=== PATIENT | female | born 2005 | race Caucasian/White ===

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

== ENCOUNTER 2023-01-25 18:23 | Emergency (ER) | payer BC, MEDICAID, SELFPAY ==
[2023-01-25 18:24] VITALS: BP 153/101; PULSE 125; RESP 18; TEMP 36.4; O2SAT 95; BMI 33.5
== END 2023-01-25 18:30 | disposition left against medical advice (07) ==
LOC: ED 18:54
PROVIDERS: PCP Pediatrics
DX: Z53.21 Procedure and treatment not carried out due to patient leaving prior to being seen by health care provider (principal)

== ENCOUNTER 2023-01-26 11:42 | Emergency (ER) | payer BC, MEDICAID, SELFPAY ==
[2023-01-26 11:43] VITALS: BP 147/119; PULSE 120; RESP 18; TEMP 36.1; O2SAT 98; BMI 33.4
[2023-01-26 11:51] VITALS: O2SAT 97
[2023-01-26 11:53] VITALS: PULSE 105; O2SAT 98
--- NOTE | 2023-01-26 13:00 | EKG12_ITS ---
Test Reason : Blood Pressure : / mmHG Vent. Rate : 087 BPM Atrial Rate : 087 BPM P-R Int : 136 ms QRS Dur : 088 ms QT Int : 374 ms P-R-T Axes : 031 090 061 degrees QTc Int : 450 ms Normal sinus rhythm with sinus arrhythmia Rightward axis Borderline ECG Confirmed by OPAL TALAMANTES, TRAY ([id number]), photograph editor TOÑO HERNANDEZ ([id number]) on 01/28/2023 8:51:58 AM Referred By: Confirmed By:ARDEN JOSEPH MD
--- NOTE | 2023-01-26 13:01 | US_ITS ---
STUDY: ABDOMINAL ULTRASOUND - RIGHT UPPER QUADRANT REASON FOR VISIT: Female, 17 years old. ABDOMEN PAIN PAIN TECHNIQUE: Ultrasound evaluation of the right upper quadrant was performed with real-time and static garsia-scale imaging. TECHNICAL QUALITY: Adequate. COMPARISON: None FINDINGS: Liver: There is normal echogenicity of the liver. The bile ducts are within normal limits. There is hepatic color flow. The direction of portal flow is hepatopetal. There is no demonstrated mass lesion. Gallbladder: Normal distended gallbladder. The gallbladder wall measures 1.7 mm. There is a negative sonographic Moya''s sign. There is no pericholecystic fluid. There are no gallstones. Common Bile Duct (C.B.D.): The common bile duct measures ( in mm): 3.2 Pancreas: Normal size of the head, body of the pancreas. There is normal echogenicity of the pancreas. There is no demonstrated pancreatic mass or cyst. Right Kidney: Normal size of the right kidney. The right kidney measures 9.7 cm. . Normal renal cortex. There is no demonstrated renal mass or cyst. There is no right hydronephrosis. Aorta: It is not visualized. There is too much overlying bowel gas. . US/Gallbladder IMPRESSION: No acute findings. Electronically Signed: Mikhail Valle MD at 14:31 EDT ,
[2023-01-26] MEDS: 0.9% Normal Saline 1,000 ML 1000 ML IV (13:19)
[2023-01-26] MEDS: Mag Hydrox/Al Hydrox/Simeth 30 ML UDC PO (13:25)
[2023-01-26 13:29] LABS: Mucous, Urine 0 SEEN /hpf (<or=2+); Red Blood Cells-Urine 0 SEEN /hpf (0-5)
[2023-01-26 13:33] LABS: Absolute Lymphocyte Count 2.02 X10^3/uL (0.83-4.51); Absolute Neutrophil Count 8.5 X10^3/uL (2.0-7.7); Basophil# 0.05 X10^3/uL; Basophil% 0.4 % (0-1); Eosinophil# 0.08 X10^3/uL; Eosinophils% 0.7 % (0-5); Hemoglobin 14.1 g/dL (12.0-15.0); Lymphocyte # 2.02 X10^3/ul (0.83-4.51); Lymphocyte % 17.9 % (19-41); Mean Corpuscular Hgb 27.3 pg (27.0-32.0); Mean Corpuscular Volume 85.3 fL (81-99); Mean Platelet Vol. 10.5 fl (6.2-12.0); Monocyte# 0.57 X10^3/uL; NRBC Flagged by Analyzer 0 % (0-5); Neutrophil # 8.54 X10^3/uL (2.7-7.7); Neutrophil % 75.6 % (47-70); Platelet Count 388 K/mm3 (150-450); RBC Distribution Width SD 40.6 fl (35.1-43.9); Red Blood Count 5.16 M/mm3 (4.2-5.4); White Blood Count 11.3 K/mm3 (4.4-11.0)
[2023-01-26 13:39] LABS: Color, Urine Yellow (Yellow); Glucose, Dipstick Normal (Normal); Ketone-Dipstick Negative (Negative); Leukocyte Esterase-Dipstick 100 /ul (Negative); Nitrite-Dipstick Negative (Negative); Occult Blood-Urine Negative /ul (Negative); Protein-Dipstick 15 mg/dl (Negative); Specific Gravity, Urine 1.015 (1.002-1.030); Urine Bilirubin Dipstick Negative (Negative); Urine Clarity Cloudy (Clear); Urine Urobilinogen Normal (Normal)
[2023-01-26 13:49] LABS: D-Dimer Quantitative (DVT/PE) 0.35 FEU/ug/m (0.27-0.49)
[2023-01-26 13:51] LABS: ALB/GLOB Ratio 0.8 RATIO (0.9-2.4); AST(SGOT) 13 U/L (15-37); Alanine Aminotransfer ALT/SGPT 31 U/L (13-56); Albumin, Serum 3.8 g/dL (3.2-5.0); Alkaline Phosphatase 77 U/L (45-117); Anion Gap 5 (5-15); BUN 7 mg/dL (7-18); BUN/Creat Ratio 8.1 RATIO (10-20); Calcium,Total 9.2 mg/dL (8.5-10.1); Chloride 108 mmol/L (98-107); Creatinine, Serum 0.86 mg/dL (0.55-1.02); EST Glomerular Filtration Rate 90 mL/min (>60); Est Glom Filt Rate - Afr Amer 109 mL/min (>60); Estimated Creatinine Clearance 94.68 ml/min; Globulin 4.7 g/dL (2.2-4.2); Glucose 93 mg/dL (74-106); Lipase 20 U/L (13-75); Potassium 3.8 mmol/L (3.5-5.1); Protein, Total 8.5 g/dL (6.4-8.2); Sodium Level 138 mmol/L (136-145); Troponin-I HS < 3 pg/mL (3.0-54.0)
[2023-01-26 13:52] LABS: Bacteria 2+ /hpf (None Seen); Internal QC Validated? YES +Cl - CLEAR BKGD; Pregnancy, Urine Negative Negative; Squamous Epithelial Cells - UA 5-10 SEEN /hpf (5-10); White Blood Cells 5-10 SEEN /hpf (0-5)
[2023-01-26 13:56] LABS: Lactic Acid 1.2 mmol/L (0.4-1.9)
--- NOTE | 2023-01-26 15:12 | RAD_ITS ---
EXAM: XR CHEST, 2 VIEWS CLINICAL INDICATION: dyspnea TECHNIQUE: Frontal and lateral views of the chest. COMPARISON: 7.5.23 FINDINGS: LUNGS AND PLEURAL SPACES: Unremarkable. No consolidation or edema. No pneumothorax. No effusion. HEART: Unremarkable. Cardiac silhouette not enlarged. MEDIASTINUM: Central airways and mediastinal contour are unremarkable. BONES/JOINTS: Unremarkable. SOFT TISSUES: Unremarkable. RAD/Chest PA and Lateral IMPRESSION: No radiographic evidence of acute cardiopulmonary disease. Electronically Signed: Mikhail Valle MD at 15:35 EDT ,
--- NOTE | 2023-01-26 15:25 | EDS_ITS ---
HPI History of Present Illness Chief Complaint: Shortness of Breath Informant: patient Narrative Narrative: Patient is a 17-year-old female presenting with ongoing chest discomfort, sensation of shortness of breath and reflux. Patient states her symptoms started the end of November. She initially went to urgent care she is complained of nausea, vomiting and a sensation of feeling like she could not take a deep breath for couple days. She was clinically diagnosed with aspiration pneumonia and placed on amoxicillin as well as prescribe Zofran. Patient states about a week later she came to the ER because she was having worsening of her symptoms. She feels that the antibiotics irritated everything. She was feeling more short of breath. She had work-up included chest x-ray and labs which was largely negative and was discharged home. She returned to the ER the following day with progression of her symptoms. She was given a GI cocktail and had improvement of her symptoms. She has had outpatient follow-up ordered for tachycardia. She is been referred to GI. She states that she called GI but was told that they are not excepting new patients so she did not make an appointment. She was prescribed omeprazole which she has been taking daily. She states she has about 3 pills left. Patient states that she is continue to have symptoms. She states that she will feel like she cannot take a deep enough breath or catch her breath. She has intermittent short-lived pain in her chest that is in all different spots including her back. She notes that if she vomits her symptoms are much worse. She did have black in her stool. She does of well she is marijuana. She denies any alcohol use. She denies any blood in her vomit. She is her symptoms are better when she lays down flat. She states she always has a sensation of tightness in her throat. She is also having some mild lower abdominal cramping pain. Last menstrual period was 1 month ago and she is due to start today. She does not think she is . She has been having some abdominal bloating and increased gurgling sound in her abdomen. Denies any new cough. Denies any significant change in her symptoms. Requested a GI cocktail. [facility] Medical History COVID-19 Home Medications ondansetron HCl 8 mg tablet 8 mg PO Q8H PRN nausea and vomiting #10 tabs 12/25/22 [Rx Last Taken Unknown] omeprazole 20 mg capsule,delayed release 20 mg PO DAILY #30 CAPSULES 12/31/22 [Rx Last Taken Unknown] omeprazole 40 mg capsule,delayed release 40 mg PO DAILY #30 caps 01/26/23 [Rx Last Taken Unknown] sucralfate 1 gram tablet (Carafate) 1 g PO TID #30 tabs 01/26/23 [Rx Last Taken Unknown] Allergy/AdvReac Type Severity Reaction Status Date / Time No Known Allergies Allergy Verified 01/26/23 11:45 Social History Smoking Status: Current every day smoker tobacco type: e-cigarettes ROS ROS ED Constitutional Constitutional ED: Denies chills or fever(s) ENT ENT ED: Reports sore throat Cardiovascular Cardiovascular: Reports chest pain; Denies palpitations or racing heartbeat Respiratory/Chest Respiratory/Chest: Reports cough and dyspnea; Denies dyspnea on exertion Gastrointestinal Gastrointestinal: Reports abdominal pain, melena, nausea and vomiting; Denies diarrhea Musculoskeletal Musculoskeletal: Denies arthralgias or myalgias Integumentary Denies rash Neurologic Neurologic: Denies headache(s) or weakness Psychiatric Psychiatric: Denies anxiety Hematologic/Lymphatic Hematologic/Lymphatic: Denies easy bleeding or easy bruising EXAM Physical Exam Const Vital Signs: 01/26/23 11:43 01/26/23 11:51 01/26/23 11:53 Temperature 96.9 F L Temperature Source Temporal Pulse Rate 120 H 105 H Respiratory Rate 18 Respiratory Effort Non-Labored Short of Breath Respiratory Depth Normal Respiratory Pattern Normal Blood Pressure 147/119 H Blood Pressure Mean 128 Pulse Ox 98 98 Oxygen Delivery Method Room Air Room Air Room Air Positive well nourished and well developed General Appearance ED: well developed and NAD HEENT Reports moist mucous membranes Eyes PERRL and EOMs intact bilaterally General Eye ED: Negative for pale conjunctiva Neck supple and no JVD Chest Wall inspection of chest normal and palpation of chest normal Chest Narrative: no chest wall crepitus Resp normal respiratory effort and clear to auscultation bilaterally Cardio regular rate, regular rhythm and no murmurs GI normal to inspection, nondistended, normoactive bowel sounds and non-distended GI Narrative: Epigastric and right upper quadrant, negative Moya sign Palpation: soft Back/Spine no CVA tenderness Extremity normal to inspection Neuro oriented x3 Sensorium / Orientation: alert Motor Exam: Negative for general weakness Psych mental status grossly normal Mood & Affect: Negative for depressed or anxious Skin no rashes or lesions noted and no wounds MDM MDM MDM Narrative Medical decision making narrative: Patient is evaluated for continued chest discomfort as well as epigastric disc omfort and shortness of breath. Her symptoms really seem more GI in nature. She is given a GI cocktail and completely resolved. She is tachycardic upon arrival and chart review shows that she has never had a PE evaluation with a D- dimer. This is obtained she is otherwise low risk however her D-dimer is normal and she does not require a CTA. Otherwise have a low suspicion for pulmonary emboli. She is a mild cytosis 11.3 which is nonspecific. Troponin is less than 3 and her EKG is normal/nonischemic. I do not think this is cardiopulmonary process. Two-view chest x-ray viewed by myself as well as radiology is negative for acute infiltrate, pneumothorax, cardiomegaly or signs of mediastinitis/Boerhaave syndrome. On exam patient did have tenderness to palpation as well in her right upper quadrant and ultrasound of the gallbladder is obtained. This is negative for any acute process. Discussed with GI and will arrange for outpatient follow-up. Patient is comfortable with this. Patient's lactate is normal. She reported dark stools however she has a normal hemoglobin of 14.1 and she is a normal BUN which is not consistent with an upper GI bleed. Will increase the patient's PPI and also started on Carafate. Patient also discussed that she can use an [id number] form of a GI cocktail with Maalox and simethicone for breakthrough symptoms. Urinalysis is consistent with contamination. Patient discharged home in stable and improved condition. Lab Data Attestation: I reviewed the patient's lab results. Labs: Laboratory Results - last 24 hr 01/26/23 13:26 WBC 11.3 H RBC 5.16 Hgb 14.1 Hct 44.0 MCV 85.3 MCH 27.3 MCHC 32.0 RDW Std Deviation 40.6 RDW Coeff of Makenna 13.0 Plt Count 388 MPV 10.5 Immature Gran % (Auto) 0.400 Neut % (Auto) 75.6 H Lymph % (Auto) 17.9 L [place] % (Auto) 5.0 Eos % (Auto) 0.7 Baso % (Auto) 0.4 Absolute Neuts (auto) 8.5 H Absolute Lymphs (auto) 2.02 Nucleated RBC % 0 D-Dimer Quant (PE/DVT) 0.35 Sodium 138 Potassium 3.8 Chloride 108 H Carbon Dioxide 25.0 Anion Gap 5 BUN 7 Creatinine 0.86 Estim Creat Clear Calc 94.68 Est GFR (MDRD) Af Amer 109 Est GFR (MDRD) Non-Af 90 BUN/Creatinine Ratio 8.1 L Glucose 93 Lactic Acid 1.2 Calcium 9.2 Total Bilirubin 0.30 AST 13 L ALT 31 Alkaline Phosphatase 77 Troponin I High Sens < 3 L Total Protein 8.5 H Albumin 3.8 Globulin 4.7 H Albumin/Globulin Ratio 0.8 L Lipase 20 Urine Color Yellow Urine Clarity Cloudy Urine pH 8.0 Ur Specific [place] 1.015 Urine Protein 15 H Urine Glucose (UA) Normal Urine Ketones Negative Urine Occult Blood Negative Urine Nitrite Negative Urine Bilirubin Negative Urine Urobilinogen Normal Ur Leukocyte Esterase 100 H Urine RBC 0 SEEN Urine WBC 5-10 SEEN Ur Squamous Epith Cells 5-10 SEEN Urine Bacteria 2+ Urine Mucus 0 SEEN Urine Test Negative Radiography Diagnostic Testing: Clinical Impression(s) from Imaging Studies Gallbladder Ultrasound 01/26/23 13:01 IMPRESSION: No acute findings. Electronically Signed: Mikhail Valle MD at 14:31 EDT , Chest X-Ray 01/26/23 15:12 IMPRESSION: No radiographic evidence of acute cardiopulmonary disease. Electronically Signed: Mikhail Valle MD at 15:35 EDT , Rhythm Strip Rhythm Strip: Sinus Rhythm Rate: 87 Ectopy: None EKG Initial EKG: Attestation: I personally reviewed and interpreted this EKG as follows: Interpretation: Sinus Rhythm Comments: Normal sinus rhythm at a rate of 87 bpm with sinus arrhythmia Rightward axis Normal intervals Normal ST segments Discharge Plan Triage Chief Complaint: Shortness of Breath ED Provider: Lashay Zarate Dx/Rx/DC Orders Clinical Impression: Dyspnea, Esophagitis Instructions: Esophagitis, ED Dyspnea, ED Epigastric Pain Uncertain Cause Prescriptions: New omeprazole 40 mg capsule,delayed release(DR/EC) 40 mg PO DAILY Qty: 30 0RF sucralfate [Carafate] 1 gram tablet 1 g PO TID Qty: 30 0RF Rx Instructions: before meals No Action ondansetron HCl 8 mg tablet 8 mg PO Q8H PRN (Reason: nausea and vomiting) Qty: 10 0RF omeprazole 20 mg capsule,delayed release(DR/EC) 20 mg PO DAILY Qty: 30 0RF Primary Care Provider: Care Physician,No Primary Referrals: Maynor Real MD [Med Staff - Active Staff] - As Needed Care Physician,No Primary [Primary Care Provider] - Activity Restrictions/Additional Instructions: Your work-up was largely normal. I do think you need to follow-up with either a supervisor throwing department or general surgery for endoscopy (scope of your stomach) to further figure out what is causing this symptoms. Disposition Disposition: Home, Self Care
== END 2023-01-26 16:08 | disposition home or self-care (01) ==
PROVIDERS: Emergency Provider Emergency Medicine; Visit Provider Emergency Medicine
DX: K20.90 Esophagitis, unspecified without bleeding (principal); R10.30 Lower abdominal pain, unspecified; R06.00 Dyspnea, unspecified; F17.290 Nicotine dependence, other tobacco product, uncomplicated; R14.0 Abdominal distension (gaseous); R06.02 Shortness of breath
CPT/HCPCS: 99281; 71046; 76705; 80053; 81001; 81025; 83605; 83690; 84484; 85025; 85379; 93005; 96360; 96361; 99283; J7030; A4216

== ENCOUNTER 2023-02-12 00:20 | Emergency (ER) | payer BC, MEDICAID, SELFPAY ==
--- NOTE | 2023-02-12 00:20 | EKG12_ITS ---
Test Reason : cp Blood Pressure : / mmHG Vent. Rate : 132 BPM Atrial Rate : 132 BPM P-R Int : 142 ms QRS Dur : 086 ms QT Int : 300 ms P-R-T Axes : 056 087 029 degrees QTc Int : 444 ms Sinus tachycardia Otherwise normal ECG Confirmed by ASHWIN DE LA CRUZ ([id number]), index editor MAJOR ROYAL ([id number]) on 02/15/2023 2:11:23 PM Referred By: Confirmed By:ASHWIN DE LA CRUZ
[2023-02-12 00:21] VITALS: BP 123/70; PULSE 88; RESP 12; TEMP 36.4; O2SAT 95; BMI 34.0
[2023-02-12 01:12] LABS: Absolute Lymphocyte Count 1.63 X10^3/uL (0.83-4.51); Basophil# 0.05 X10^3/uL; Basophil% 0.4 % (0-1); Eosinophil# 0.07 X10^3/uL; Eosinophils% 0.6 % (0-5); Hematocrit 44.3 % (37-47); Hemoglobin 14.3 g/dL (12.0-15.0); Lymphocyte # 1.63 X10^3/ul (0.83-4.51); Lymphocyte % 14.5 % (19-41); Mean Corp Hgb Conc 32.3 g/dL (32-36); Mean Corpuscular Hgb 27.8 pg (27.0-32.0); Mean Corpuscular Volume 86.2 fL (81-99); Mean Platelet Vol. 9.9 fl (6.2-12.0); Monocyte# 0.43 X10^3/uL; Monocyte% 3.8 % (0-10); NRBC Flagged by Analyzer 0 % (0-5); Neutrophil # 8.98 X10^3/uL (2.7-7.7); Neutrophil % 80.1 % (47-70); Platelet Count 429 K/mm3 (150-450); RBC Distribution Width CV 12.7 % (11.6-14.6); RBC Distribution Width SD 39.9 fl (35.1-43.9); Red Blood Count 5.14 M/mm3 (4.2-5.4); White Blood Count 11.2 K/mm3 (4.4-11.0)
[2023-02-12 01:22] LABS: Internal QC Validated? YES +Cl - CLEAR BKGD; Pregnancy, Serum, hCG Quali. NEGATIVE Negative
[2023-02-12 01:36] LABS: Anion Gap 6 (5-15); BUN 11 mg/dL (7-18); BUN/Creat Ratio 12.2 RATIO (10-20); Calcium,Total 9.3 mg/dL (8.5-10.1); Chloride 107 mmol/L (98-107); EST Glomerular Filtration Rate 85 mL/min (>60); Est Glom Filt Rate - Afr Amer 103 mL/min (>60); Estimated Creatinine Clearance 86.82 ml/min; Glucose 99 mg/dL (74-106); Magnesium 2.2 mg/dL (1.6-2.6); Potassium 3.8 mmol/L (3.5-5.1); Sodium Level 139 mmol/L (136-145); Thyroid Stim Hormone (TSH) 1.41 uIU/mL (0.358-3.74)
[2023-02-12 01:40] VITALS: BP 107/70; BP 117/78; BP 133/111; PULSE 108; PULSE 78; PULSE 90
--- NOTE | 2023-02-12 02:06 | EX.ED.DYSGE1 ---
HPI History of Present Illness Chief Complaint: Palpitations Informant: patient Narrative Narrative: Patient is a 17-year-old female with past medical history of gastritis. She states that over the last week she has felt that if she stands up she will get a rapidly fast heart rate that causes her to feel as if she is almost ready to pass out. She denies any family history of cardiac disease at a young age or history of cardiac dysrhythmia. She denies any history of thyroid disorder. She denies any history of illicit drug use. However as symptoms have persisted she presents for evaluation [facility] Medical History (Updated 02/12/23 @ 06:[address] Dewayne Paulino, ) Anxiety COVID-19 Home Medications omeprazole 20 mg capsule,delayed release 20 mg PO DAILY #30 CAPSULES 12/31/22 [Rx Last Taken Unknown] sucralfate 1 gram tablet (Carafate) 1 g PO TID #30 tabs 01/26/23 [Rx Last Taken Unknown] Allergy/AdvReac Type Severity Reaction Status Date / Time No Known Allergies Allergy Verified 01/26/23 11:45 Social History Smoking Status: Current every day smoker tobacco type: e-cigarettes ROS ROS ED Constitutional Constitutional ED: Denies chills or fever(s) ENT ENT ED: Denies sore throat Cardiovascular Cardiovascular: Reports palpitations and racing heartbeat; Denies chest pain Respiratory/Chest Respiratory/Chest: Denies cough or dyspnea Gastrointestinal Gastrointestinal: Denies abdominal pain, diarrhea, nausea or vomiting Genitourinary Genitourinary ED: Denies dysuria Musculoskeletal Musculoskeletal: Denies myalgias Integumentary Denies rash Neurologic Neurologic: Denies headache(s) Hematologic/Lymphatic Hematologic/Lymphatic: Denies easy bleeding or easy bruising EXAM Physical Exam Const Vital Signs: 02/12/23 00:21 02/12/23 01:40 Temperature 97.5 F L Temperature Source Temporal Pulse Rate 88 Pulse Rate [Lying] 78 Pulse Rate [Sitting (for 1 minute prior to obtaining)] 90 Pulse Rate [Standing (for 1 minute prior to obtaining)] 108 H Respiratory Rate 12 Blood Pressure 123/70 H Blood Pressure [Lying] 107/70 Blood Pressure [Sitting (for 1 minute prior to obtaining)] 117/78 Blood Pressure [Standing (for 1 minute prior to obtaining)] 133/111 H Blood Pressure Mean 87 Blood Pressure Mean [Lying] 82 Blood Pressure Mean [Sitting (for 1 minute prior to obtaining)] 91 Blood Pressure Mean [Standing (for 1 minute prior to obtaining)] 118 Pulse Ox 95 Positive well nourished and well developed General Appearance ED: well developed; Negative for pallor HEENT HEENT Narrative: Mucous membranes are slightly dry and tacky Eyes PERRL and EOMs intact bilaterally General Eye ED: Negative for scleral icterus Neck supple Neck Narrative: No nodule or goiter noted with palpation of the thyroid Chest Wall palpation of chest normal Resp normal respiratory effort and clear to auscultation bilaterally Cardio regular rate and regular rhythm Rate: other Other Details: Radial and carotid pulses are equal and symmetric GI normal to inspection, nondistended, normoactive bowel sounds, non-tender and non-distended Auscultation: normoactive bowel sounds Palpation: soft Extremity normal to inspection Extremity Narrative: No asymmetric edema no pitting edema negative Homans' sign bilaterally Neuro oriented x3, CN's II-XII intact bilaterally and no sensory deficits noted Sensorium / Orientation: alert Motor Exam: strength 5/5 throughout Psych mental status grossly normal Skin no rashes or lesions noted General Skin Exam: Negative for jaundice or pallor MDM MDM MDM Narrative Medical decision making narrative: Patient presented to the ER with stable vitals. Her history is concerning for orthostatic near syncope versus postural orthostatic tachycardic syndrome. There is also possibility that she has acute kidney injury or electrolyte derangement or acute blood loss anemia. Basic labs were obtained which revealed no clinically significant finding. Orthostatic vital signs were technically negative but with standing her heart rate increased by 18 bpm corroborating her story of palpitations/tachycardia when she stands up. I initially ordered IV fluids secondary to this. Patient states she does not want the IV fluids and she will continue to drink fluids orally. I discussed that there is a possibility this could be POTS but that is a diagnosis to be made by cardiology and not in the emergency department. Patient voices understanding that she will need to follow-up with family doctor to discuss referrals for her recurrent symptoms but at this time she is not requiring a blood transfusion she is not having cardiac dysrhythmia or electrolyte derangement and is otherwise safe for discharge History & Record Review Discussion w/independent historian: Patient Lab Data Attestation: I reviewed the patient's lab results. Labs: Laboratory Results - last 24 hr 02/12/23 01:03 WBC 11.2 H RBC 5.14 Hgb 14.3 Hct 44.3 MCV 86.2 MCH 27.8 MCHC 32.3 RDW Std Deviation 39.9 RDW Coeff of Makenna 12.7 Plt Count 429 MPV 9.9 Immature Gran % (Auto) 0.600 Neut % (Auto) 80.1 H Lymph % (Auto) 14.5 L [place] % (Auto) 3.8 Eos % (Auto) 0.6 Baso % (Auto) 0.4 Absolute Neuts (auto) 9.0 H Absolute Lymphs (auto) 1.63 Nucleated RBC % 0 Sodium 139 Potassium 3.8 Chloride 107 Carbon Dioxide 26.0 Anion Gap 6 BUN 11 Creatinine 0.90 Estim Creat Clear Calc 86.82 Est GFR (MDRD) Af Amer 103 Est GFR (MDRD) Non-Af 85 BUN/Creatinine Ratio 12.2 Glucose 99 Calcium 9.3 Magnesium 2.2 TSH 1.41 Serum , Qual NEGATIVE Discharge Plan Triage Chief Complaint: Palpitations ED Provider: Dewayne Paulino Dx/Rx/DC Orders Clinical Impression: Palpitations, History of anxiety Instructions: ED Palpitations Prescriptions: No Action omeprazole 20 mg capsule,delayed release(DR/EC) 20 mg PO DAILY Qty: 30 0RF sucralfate [Carafate] 1 gram tablet 1 g PO TID Qty: 30 0RF Rx Instructions: before meals Primary Care Provider: Care Physician,No Primary Referrals: Annalee Robb, [Med Staff - Vessel Manager] - Care Physician,No Primary [Primary Care Provider] - Activity Restrictions/Additional Instructions: Please keep yourself well-hydrated as your vital signs with changes of position do confirm that your heart rate elevates with standing. This could also be secondary to a disease process called POTS/postural orthostatic tachycardic syndrome. Please follow-up with your family doctor to discuss potential cardiology referral to further evaluate this disease process. If you have any further concerns please return to the ER for repeat evaluation Disposition Disposition: Home, Self Care Discharge Date/Time: 02/12/23 02:20
== END 2023-02-12 02:20 | disposition home or self-care (01) ==
PROVIDERS: Emergency Provider Emergency Medicine; Visit Provider Emergency Medicine
DX: R00.2 Palpitations (principal); F17.290 Nicotine dependence, other tobacco product, uncomplicated; Z86.16 Personal history of COVID-19
CPT/HCPCS: 36415; 71045; 80048; 83735; 84443; 84484; 84703; 85025; 93005; 99283; 99284; A4216

== ENCOUNTER 2023-02-12 08:35 | Emergency (ER) | payer BC, MEDICAID, SELFPAY ==
[2023-02-12 08:37] VITALS: BP 130/76; PULSE 176; RESP 26; TEMP 35.8; O2SAT 100; BMI 34.0
[2023-02-12 08:39] VITALS: BP 158/101; PULSE 154; RESP 28; O2SAT 98
--- NOTE | 2023-02-12 08:46 | EKG12_ITS ---
Test Reason : Dysrhythmia Blood Pressure : / mmHG Vent. Rate : 084 BPM Atrial Rate : 084 BPM P-R Int : 146 ms QRS Dur : 086 ms QT Int : 388 ms P-R-T Axes : 043 094 072 degrees QTc Int : 458 ms Normal sinus rhythm Rightward axis Borderline ECG When compared with ECG of 26-JAN-2023 13:10, No significant change was found Confirmed by ASHWIN DE LA CRUZ ([id number]), manuscript editor MAJOR ROYAL ([id number]) on 02/16/2023 9:43:55 AM Referred By: KRANTHI Confirmed By:ASHWIN DE LA CRUZ
--- NOTE | 2023-02-12 08:51 | EDS_ITS ---
HPI History of Present Illness Chief Complaint: Palpitations Detail of Chief Complaint: Palpitations and chest discomfort after smoking marijuana. Informant: patient and family Onset/Context/Timing Onset: Today and Hours Activity at onset: gradual Timing: Continuous Quality: Positive for Pain Location: Substernal Current Severity: Mild Maximum Severity: Mild Worsened By: Nothing Relieved By: Nothing Associated Symptoms: Positive for Palpitations; Negative for Nausea, Vomiting, Diaphoresis, Dyspnea, Cough, Fever, Lightheadedness or Acid Reflux Narrative Narrative: 17-year-old female no stated past medical or surgical history. Not on control. No cardiac history. Smokes marijuana this morning and started tachycardia. Was actually seen yesterday or earlier this morning in the emergency department work-up at that time was negative. No history of DVT or PE. Not . Not on control pills. No recent travel, surgery or immobilization. No leg pain or swelling. No hemoptysis. Prior Similar Symptoms: Yes Recent Illness/Hospitalization: No CVD Risk Factors: Positive for Smoking; Negative for Hypertension, Diabetes, Hypercholesterolemia or Family History 1' </=55 PE Risk Factors: Negative for Recent Travel/Surgery, Recent Immobilization, Prior DVT or PE, Cancer or OCP + Smoking + >/=35 TAD Risk Factors: Negative for Marfan's Syndrome [facility] Medical History Anxiety COVID-19 Home Medications omeprazole 20 mg capsule,delayed release 20 mg PO DAILY #30 CAPSULES 12/31/22 [Rx Last Taken Unknown] sucralfate 1 gram tablet (Carafate) 1 g PO TID #30 tabs 01/26/23 [Rx Last Taken Unknown] Allergy/AdvReac Type Severity Reaction Status Date / Time No Known Allergies Allergy Verified 02/12/23 08:38 Social History Smoking Status: Current every day smoker tobacco type: e-cigarettes ROS ROS ED ROS Narrative Denies recent illness. Palpitations. Review of Systems ROS Unobtainable: Denies due to encephalopathy Constitutional Constitutional ED: Denies chills Eyes Eyes: Reports none ENT ENT ED: Denies ear pain Cardiovascular Cardiovascular: Reports as per HPI, chest pain, palpitations and racing heartbeat Respiratory/Chest Respiratory/Chest: Denies cough or dyspnea Gastrointestinal Gastrointestinal: Denies abdominal pain Genitourinary Genitourinary ED: Denies dysuria Musculoskeletal Musculoskeletal: Denies arthralgias Integumentary Denies abscess Neurologic Neurologic: Denies headache(s) Psychiatric Psychiatric: Denies anxiety Endocrine Endocrinology: Denies cold intolerance Hematologic/Lymphatic Hematologic/Lymphatic: Denies easy bleeding or easy bruising Allergic/Immunologic Allergic/Immunologic ED: Denies mouth swelling or tongue swelling EXAM Physical Exam Narrative Exam Narrative: 17-year-old female vital signs are stable initial heart rate 176, no room at 145. She does not look septic toxic. Pulse ox 100% on room air no hypoxia. H EENT exam unremarkable. Neck nontender no thyromegaly. No lymphadenopathy. Lungs clear to auscultation bilaterally. Heart tachycardic rate about 145 no murmur. Chest wall and ribs nontender. Abdomen soft nontender. Moving all 4 extremities. Calves are nontender that edema or cords. Equal symmetrical radial pulses. Back nontender. Skin normal. Neurologically she is awake alert with no focal motor deficits. Benign exam of the and the tachycardia. Const Vital Signs: 02/12/23 08:37 02/12/23 08:39 02/12/23 08:48 Temperature 96.4 F L Temperature Source Temporal Pulse Rate 176 H 154 H Respiratory Rate 26 H 28 H Blood Pressure 130/76 H 158/101 H Blood Pressure Mean 94 120 Pulse Ox 100 98 Oxygen Delivery Method Room Air Room Air Room Air Positive well nourished and well developed; Negative for cachectic, contractures or unkempt General Appearance ED: well developed and NAD; Negative for unkempt, cachectic, contractures or pallor Nutritional Appearance: Negative for cachectic HEENT Reports moist mucous membranes normocephalic and atraumatic; Negative for trauma or tenderness Eyes PERRL and EOMs intact bilaterally General Eye ED: Negative for pale conjunctiva or scleral icterus Neck no lymphadenopathy, supple and no JVD General: Negative for tenderness Chest Wall inspection of chest normal and palpation of chest normal Chest: Negative for tenderness Resp normal respiratory effort and clear to auscultation bilaterally Effort and Inspection: Negative for respiratory distress Auscultation: Negative for rales, rhonchi or wheezes Cardio regular rhythm, S1 normal heart sound, S2 normal heart sound and no murmurs; Negative for regular rate Rate: tachycardic Rhythm: Negative for abnormal rhythm Peripheral Pulses: pulses 2+ throughout GI normal to inspection, nondistended, normoactive bowel sounds, soft to palpation, non-tender, non-distended and no masses Auscultation: Negative for hyperactive bowel sounds Palpation: Negative for splenomegaly or mass Back/Spine no CVA tenderness and no thoracic nor lumbar tenderness General Back: Negative for CVA tenderness Cervical Spine: Negative for cervical spine tenderness Extremity normal to inspection General Extremety ED: Negative for edema, pulses abnormal or tenderness General Extremity: Negative for edema or pulses abnormal Neuro oriented x3 and CN's II-XII intact bilaterally Sensorium / Orientation: awake, alert, oriented to person, oriented to place and oriented to time; Negative for confused, lethargic or stuporous Motor Exam: strength 5/5 throughout Psych mental status grossly normal Appearance: Negative for unkempt Attitude: No agitated Mood & Affect: Negative for depressed, anxious or tearful Skin no rashes or lesions noted and no wounds General Skin Exam: Negative for jaundice or pallor Rashes: No rashes noted Trauma: Negative for abrasion or laceration Heart Score History: Slightly/Non-Suspicious ECG: Normal Age: </= 45 years Risk Factors: No Risk Factors Troponin: </= Normal Limit Score: 0 MDM MDM MDM Narrative Medical decision making narrative: [id number] with tachycardia and atypical chest discomfort. Exam benign and tachycardia. No history of PE or DVT or prior risk factors. She undergo ca rdiac work-up. I reviewed her recent labs from the last 12 hours they were unremarkable. Including a normal TSH. Repeat exam at 9:42 AM shows patient doing well. Says she feels better. Heart rates down to around 110. Sinus rhythm. We discussed her test results. She will be discharged home. History & Record Review Discussion w/independent historian: Patient and Family Additional record(s) reviewed:: Prior inpatient record, Prior outpatient record, Prior ED visit and Prior labs Lab Data Attestation: I reviewed the patient's lab results. Lab results narrative: CBC shows a white count 12.4. H&H at 13 and 41. Platelets 469. Electrolytes sodium 134. Gap of 7 normal BUN and creatinine 10 and 1. Glucose 126. Troponin less than 3. Chest x-ray unremarkable. EKG is sinus tachycardia. Compared to recent labs unchanged. Labs: Laboratory Results - last 24 hr 02/12/23 02/12/23 08:48 08:50 WBC 12.4 H RBC 4.87 Hgb 13.4 Hct 41.7 MCV 85.6 MCH 27.5 MCHC 32.1 RDW Std Deviation 38.7 RDW Coeff of Maken[place] 12.5 Plt Count 469 H MPV 10.1 Immature Gran % (Auto) 0.600 Neut % (Auto) 62.5 Lymph % (Auto) 29.4 [place] % (Auto) 6.4 Eos % (Auto) 0.6 Baso % (Auto) 0.5 Absolute Neuts (auto) 7.7 Absolute Lymphs (auto) 3.63 Nucleated RBC % 0 Sodium 134 L Potassium 3.6 Chloride 108 H Carbon Dioxide 19.0 L Anion Gap 7 BUN 10 Creatinine 1.06 H Estim Creat Clear Calc 73.71 Est GFR (MDRD) Af Amer 86 Est GFR (MDRD) Non-Af 71 BUN/Creatinine Ratio 9.4 L Glucose 126 H Calcium 9.0 Troponin I High Sens < 3 L Radiography Chest X-Ray - ED: 1 View, Read by ED Physician, Heart, Lungs, Mediastinum, Bony Structures and No Acute Disease Diagnostic Testing: Clinical Impression(s) from Imaging Studies Chest X-Ray 02/12/23 08:55 IMPRESSION: Normal x-ray examination of the chest. Electronically Signed: Boogie Aldridge MD at 9:20 EDT Reading Location ID and State: [facility] / [place] , Service support , Chest x-ray, portable, single view, interpreted myself shows no acute abnormality. Normal cardiac silhouette. Normal lung vital. No acute bony abnormalities. No pneumothorax. No infiltrates. Rhythm Strip Rhythm Strip: Sinus Tach Rate: 132 EKG Initial EKG: Attestation: I personally reviewed and interpreted this EKG as follows: Interpretation: No Acute Injury Pattern and Sinus Tachycardia Comments: Sinus tachycardia rate of 132 no acute signs of [place] or ischemia. Discharge Plan Triage Chief Complaint: Palpitations ED Provider: Ron Choudhury Dx/Rx/DC Orders Clinical Impression: Palpitations Instructions: ED Palpitations Prescriptions: No Action omeprazole 20 mg capsule,delayed release(DR/EC) 20 mg PO DAILY Qty: 30 0RF sucralfate [Carafate] 1 gram tablet 1 g PO TID Qty: 30 0RF Rx Instructions: before meals Primary Care Provider: Care Physician,No Primary Referrals: Yayo Villa MD [Non-Staff] - As Needed Care Physician,No Primary [Primary Care Provider] - Activity Restrictions/Additional Instructions: Your labs, chest x-ray and EKG were unremarkable other than the accelerated heart rate. I would strongly suggest avoiding marijuana. It may have been laced with something else that caused her heart rate to speed up. It also could be anxiety related. Follow-up with a primary care physician as needed. Disposition Disposition: Home, Self Care
--- NOTE | 2023-02-12 08:55 | RAD_ITS ---
STUDY: X-RAY CHEST REASON FOR EXAM: Female, 17 years old. Chest pain TECHNIQUE: Single AP portable view of the chest. COMPARISON: Comparison is made with prior study January 26, 2023. FINDINGS: EKG electrodes are seen. The lungs are clear and expanded. There is no demonstrated pleural abnormality. Normal size heart. Normal mediastinum and katie. Normal visualized pulmonary arteries. Normal visualized aortic arch and descending thoracic aorta. Normal visualized thoracic spine. Normal visualized ribs, clavicles, and shoulders. There is no demonstrated abnormality of the visualized soft tissue structures of the upper abdomen. RAD/Chest 1 View (Portable) IMPRESSION: Normal x-ray examination of the chest. Electronically Signed: Boogie Aldridge MD at 9:20 EDT ,
[2023-02-12 09:17] LABS: Absolute Lymphocyte Count 3.63 X10^3/uL (0.83-4.51); Absolute Neutrophil Count 7.7 X10^3/uL (2.0-7.7); Basophil# 0.06 X10^3/uL; Basophil% 0.5 % (0-1); Eosinophil# 0.08 X10^3/uL; Eosinophils% 0.6 % (0-5); Hematocrit 41.7 % (37-47); Hemoglobin 13.4 g/dL (12.0-15.0); Lymphocyte # 3.63 X10^3/ul (0.83-4.51); Lymphocyte % 29.4 % (19-41); Mean Corp Hgb Conc 32.1 g/dL (32-36); Mean Corpuscular Hgb 27.5 pg (27.0-32.0); Mean Corpuscular Volume 85.6 fL (81-99); Mean Platelet Vol. 10.1 fl (6.2-12.0); Monocyte# 0.79 X10^3/uL; Monocyte% 6.4 % (0-10); NRBC Flagged by Analyzer 0 % (0-5); Neutrophil # 7.72 X10^3/uL (2.7-7.7); Neutrophil % 62.5 % (47-70); Platelet Count 469 K/mm3 (150-450); RBC Distribution Width CV 12.5 % (11.6-14.6); RBC Distribution Width SD 38.7 fl (35.1-43.9); Red Blood Count 4.87 M/mm3 (4.2-5.4); White Blood Count 12.4 K/mm3 (4.4-11.0)
[2023-02-12 09:26] LABS: Anion Gap 7 (5-15); BUN 10 mg/dL (7-18); BUN/Creat Ratio 9.4 RATIO (10-20); Chloride 108 mmol/L (98-107); Creatinine, Serum 1.06 mg/dL (0.55-1.02); EST Glomerular Filtration Rate 71 mL/min (>60); Est Glom Filt Rate - Afr Amer 86 mL/min (>60); Estimated Creatinine Clearance 73.71 ml/min; Glucose 126 mg/dL (74-106); Potassium 3.6 mmol/L (3.5-5.1); Sodium Level 134 mmol/L (136-145); Troponin-I HS < 3 pg/mL (3.0-54.0)
[2023-02-12 09:48] VITALS: BP 129/96; PULSE 112; RESP 16
== END 2023-02-12 09:48 | disposition home or self-care (01) ==
PROVIDERS: Emergency Provider Emergency Medicine; Visit Provider Emergency Medicine
DX: R00.2 Palpitations (principal); F12.10 Cannabis abuse, uncomplicated; F17.290 Nicotine dependence, other tobacco product, uncomplicated; Z86.16 Personal history of COVID-19
CPT/HCPCS: 36415; 71045; 80048; 84484; 85025; 93005; 99284; A4216